=== PATIENT | female | born 1985 | race African-American/Black ===

== ENCOUNTER 2020-10-06 13:01 | Emergency (ER) | payer BC ==
[~2020-10-06] VITALS: Ht 170.2 cm; Wt 90.7 kg
[2020-10-06 13:27] LABS: URINE BILIRUBIN NEGATIVE (Negative); URINE BLOOD 2+ (Negative); URINE CLARITY TURBID; URINE COLOR YELLOW; URINE GLUCOSE-RANDOM* NEGATIVE (Negative); URINE KETONES TRACE (Negative); URINE LEUKOCYTES-REFLEX NEGATIVE (Negative); URINE NITRITE-REFLEX NEGATIVE (Negative); URINE PROTEIN (DIPSTICK) NEGATIVE (Negative); URINE SPECIFIC GRAVITY >= 1.030 (1.005-1.035)
[2020-10-06 13:37] LABS: AMORPHOUS URATES Many /LPF (None Seen); SQUAMOUS 0-3 Few /LPF (0-3)
[2020-10-06 13:38] LABS: BACTERIA-REFLEX None Seen /HPF (None Seen); CASTS None Seen /LPF (None Seen); URINE RBC 1-2 Rare /HPF (NONE SEEN); URINE WBC-REFLEX None Seen /HPF (0-5)
[2020-10-06 13:41] LABS: ABSOLUTE NEUTROPHILS 4.6 thou/uL (1.4-8.2); BASOPHILS 0.2 % (0.0-2.0); EOSINOPHILS 1.1 % (0.0-3.0); HEMOGLOBIN 11.2 gm/dL (12.0-15.0); MCH 24.9 pg (26.0-34.0); MCHC 31.9 g/dL (28.0-37.0); MONOCYTES 8.1 % (1.0-8.0); PLATELET COUNT 304 thou/uL (150-400); POLYS 71.6 % (36.0-66.0); RBC 4.49 mil/uL (4.20-5.00); RDW 15.9 % (10.5-14.5); WBC 6.4 thou/uL (4.0-11.0)
[2020-10-06 14:43] LABS: CALCIUM 8.2 mg/dL (8.5-10.1); CREATININE 0.7 mg/dL (0.6-1.0); POTASSIUM 3.1 mmol/L (3.5-5.1)
[2020-10-06 14:49] LABS: ALBUMIN 3.2 g/dL (3.4-5.0); MAGNESIUM 1.8 mg/dL (1.8-2.4); TOTAL BILIRUBIN 0.5 mg/dL (0.2-1.0); TOTAL PROTEIN 7.2 g/dL (6.4-8.2)
[2020-10-06] MEDS ORDERED: ZOFRAN ODT4 MG PO (15:44)
[2020-10-06 15:47] VITALS: BP 129/83
== END 2020-10-06 16:22 | disposition home or self-care (01) ==
LOC: ER 13:01
PROVIDERS: Emergency Medicine
DX: R11.2 Nausea with vomiting, unspecified (principal); R19.7 Diarrhea, unspecified; R10.31 Right lower quadrant pain; R10.13 Epigastric pain; R51.9 Headache, unspecified; Z87.442 Personal history of urinary calculi; Z86.16 Personal history of COVID-19